=== PATIENT | male | born 1985 | race Caucasian/White ===

== ENCOUNTER 2016-11-04 14:18 | Emergency (ER) | payer SELFPAY ==
[2016-11-04 14:24] VITALS: BMI 39.1
--- NOTE | 2016-11-04 15:05 | PDOC ---
History of Present Illness - General Chief Complaint: Edema Stated Complaint: GENITAL EDEMA (PCP SENT) Time Seen by Provider: 11/04/16 15:03 History Source: Patient Exam Limitations: No Limitations - History of Present Illness Initial Comments: 11/04/16 15:14 CC: 3 week h/o of scrotal swelling Patient is a 31 y.o. male with no PMH who presents to our facility today c/o a 3 week h/o scrotal swelling. Patient states he noticed scrotal swelling approximately the size of tennis ball approximately 3 weeks previous and notes the swelling increased. Patient denies any associated pain and notes manipulation of his scrotum does not change the size of the swelling. Timing/Duration: other (2-3 weeks) Severity: severe Associated Symptoms: reports: denies symptoms Past History - Past Medical History Allergies/Adverse Reactions: Allergies Allergy/AdvReac Type Severity Reaction Status Date / Time Penicillins Allergy Verified 11/04/16 14:22 Home Medications: Ambulatory Orders NK [No Known Home Medication] 11/04/16 Other medical history: PATIENT DENIES MEDICAL HX - Psycho/Social/Smoking Cessation Hx Suicidal Ideation: No Smoking History: Current every day smoker Number of Cigarettes Smoked Daily: 5 Information on smoking cessation initiated: No Hx Alcohol Use: Yes ("SOCIALLY") Drug/Substance Use Hx: No Substance Use Type: Alcohol Review of Systems - Review of Systems Constitutional: Yes: Other (No fever, chills, malaise or unintentional weight loss) HEENTM: Yes: Other (No visual changes, tinnitus, difficulty swallowing, throat pain ) Respiratory: Yes: Other (No shortness of breath, cough, wheezing ) Cardiac (ROS): Yes: Other (No chest pain, palpitations, syncope o) ABD/GI: Yes: Other (No nausea, vomiting, diarrhea, constipation) : Yes: Testicular Swelling, Other Psychiatric: Yes: Other (No anxiety, depression, life stressors or sleep pattern changes) All Other Systems: Reviewed and Negative *Physical Exam - Vital Signs Last Vital Signs Temp Pulse Resp BP Pulse Ox 99.6 F 120 H 18 159/83 95 11/04/16 14:22 11/04/16 14:22 11/04/16 14:22 11/04/16 14:22 11/04/16 14:22 - Physical Exam General Appearance: Yes: Nourished, Appropriately Dressed Neck: positive: Trachea midline, Supple Respiratory/Chest: positive: Lungs Clear, Normal Breath Sounds Cardiovascular: positive: Regular Rhythm, S1, S2, Other (Patient intermittently tachycardic (100's-110's) during PE) Gastrointestinal/Abdominal: positive: Normal Bowel Sounds, Soft Male Genitalia: positive: other (L sided scrotal swelling, with mild erythema; ) Integumentary: positive: Dry, Warm Neurologic: positive: Fully Oriented, Alert Medical Decision Making - Medical Decision Making 11/04/16 16:47 On PE, patient's scrotum was approximately 5 inches in diameter/3 inches wide with mild erythema and was hard and non-tender to palpation. There was some associated Upon bearing down (Valsalva) there was no change in scrotal size. Scrotal U/S confirmed diagnosis of hydrocele. Urology phone consult recommended outpatient evaluation for surgery. Patient was discharged home with instruction to follow up with either a [facility] urologist or a [facility] provider. *DC/Admit/Observation/Transfer Diagnosis at time of Disposition: Edema - Discharge Dispostion Disposition: HOME Condition at time of disposition: Good - Referrals Referrals: Nelson Burleson MD [Primary Care Provider] - - Patient Instructions Printed Discharge Instructions: DI for Hydrocele-Adult Additional Instructions: Please follow up with a urologist for evaluation. - Attestations Physician Attestion: 11/04/16 17:50 I, Dr. Martina Sanchez, attest that this document has been prepared under my direction and personally reviewed by me in its entirety. I further attest, that it accurately reflects all work, treatment, procedures and medical decision -making performed by me.
--- NOTE | 2016-11-04 15:26 | PDOC ---
Attending Attestation - Resident Resident Name: Martina Sanchez - ED Attending Attestation I have performed the following: I have examined & evaluated the patient, The case was reviewed & discussed with the resident, I agree w/resident's findings & plan, Exceptions are as noted - HPI HPI: 31 yo M no PMH presents with 3 weeks of testicular pain, swelling. He denies any redness. He states the swelling does not change when he bears down. No fever , no penile discharge. He has not sought evaluation until now, stating he was embarrassed. No prior history of hernia, hydrocele. - Physicial Exam PE: GENERAL: Awake, alert, and fully oriented, in no acute distress HEAD: No signs of trauma EYES: PERRLA, EOMI, sclera anicteric, conjunctiva clear ENT: Auricles normal inspection, hearing grossly normal, nares patent, oropharynx clear without exudates. Moist mucosa NECK: Normal ROM, supple, no lymphadenopathy, JVD, or masses LUNGS: Breath sounds equal, clear to auscultation bilaterally. No wheezes, and no crackles HEART: Regular rate and rhythm, normal S1 and S2, no murmurs, rubs or gallops ABDOMEN: Soft, nontender, normoactive bowel sounds. No guarding, no rebound. No masses EXTREMITIES: Normal range of motion, no edema. No clubbing or cyanosis. No cords, erythema, or tenderness NEUROLOGICAL: Cranial nerves II through XII grossly intact. Normal speech, normal gait SKIN: Warm, Dry, normal turgor, no rashes or lesions noted. : +Significant swelling of L testicle, firm to palpation, nontender, nonerythematous. No change in size with Valsalva. R testicle with normal lie. - Medical Decision Making DDx includes hydrocele, varicocele, hernia, epididymitis. Will obtain sono to further evaluate.
[2016-11-04] MEDS ORDERED: ACETAMINOPHEN 325 MG TABLET (FP) ONE (18:06)
[2016-11-04] MEDS ORDERED: ACETAMINOPHEN 325 MG TABLET (FP) PO ONE (18:06)
[2016-11-04 18:26] LABS: URINE APPEARANCE CLEAR; URINE BILIRUBIN NEGATIVE (NEGATIVE); URINE BLOOD NEGATIVE (NEGATIVE); URINE COLOR YELLOW; URINE GLUCOSE (UA) NEGATIVE (NEGATIVE); URINE KETONE NEGATIVE (NEGATIVE); URINE LEUK ESTERASE NEGATIVE (NEGATIVE); URINE NITRITE NEGATIVE (NEGATIVE); URINE PROTEIN NEGATIVE (NEGATIVE); URINE UROBILINOGEN 4.0 E.U/dl E.U./dl (0.2-1.0)
[2016-11-04 18:49] VITALS: TEMP 99.8
[2016-11-04 18:50] VITALS: BP 124/78; PULSE 102
== END 2016-11-04 18:50 | disposition home or self-care (01) ==
LOC: JER 14:18
DX: N43.2 Other hydrocele (principal)
CPT/HCPCS: 76870-TC; 81003; 99281-25